=== PATIENT | female | born 1955 | race Caucasian/White ===

== ENCOUNTER 2021-12-20 14:06 | Emergency (ER) | payer OTHER ==
[~2021-12-20] VITALS: Ht 165.1 cm; Wt 102.1 kg
[2021-12-20 14:08] VITALS: BP 160/95
[2021-12-20] MEDS ORDERED: DICYCLOMINE HCL LIQUID 20 MG, ALUMINUM HYD/MAG/SIMETHICONE 30 ML, LIDOCAINE VISCOUS 2% ... PO ONE ×3 (15:00)
[2021-12-20] MEDS ORDERED: DICYCLOMINE HCL LIQUID 10 MG/5 ML UDC ONE (15:05)
[2021-12-20] MEDS ORDERED: ALUMINUM HYD/MAG/SIMETHICONE 30 ML UDC ONE (15:05)
[2021-12-20 15:28] VITALS: BP 107/73
[2021-12-20] MEDS ORDERED: FLUC100T PO (15:39)
[2021-12-20] MEDS ORDERED: DIPH25TA53 PO (15:39)
== END 2021-12-20 15:45 | disposition home or self-care (01) ==
LOC: MED 14:06
DX: R06.02 Shortness of breath (principal); B37.9 Candidiasis, unspecified; J45.909 Unspecified asthma, uncomplicated; Z90.49 Acquired absence of other specified parts of digestive tract; Z91.040 Latex allergy status
CPT/HCPCS: 99283